=== PATIENT | female | born 1980 | race Caucasian/White ===

== ENCOUNTER 2016-08-31 08:30 | Emergency (ER) | payer OTHER ==
[~2016-08-31] VITALS: Ht 172.7 cm; Wt 127.0 kg
[2016-08-31 08:44] VITALS: TEMP 36.8; Ht 172.7 cm; Wt 127.0 kg
[2016-08-31] MEDS ORDERED: SODIUM CHLORIDE 0.9% 1000ML 1,000 ML IV STA (08:55)
[2016-08-31 08:57] VITALS: O2SAT 97
--- NOTE | 2016-08-31 09:10 | DIAGNOSTIC IMAGING REPORT ---
CHEST ONE VIEW PORTABLE CLINICAL HISTORY: Overdose COMPARISON STUDY: No previous studies for comparison. FINDINGS: The bones soft tissues and hemidiaphragms are normal. The cardiomediastinal silhouette is normal. The lungs are clear. The pulmonary vasculature is normal. IMPRESSION: Negative chest. The above report was generated using voice recognition software. It may contain grammatical, syntax or spelling errors. Electronically signed by: Rico Traore M.D. 08/31/2016 9:09 AM Dictated Date/Time: 08/31/2016 9:09 AM
[2016-08-31 09:35] LABS: BASO % 0.2 %; BASO ABS # 0.02 K/uL (0-0.2); COMPLETE YES; EOS % 1.9 %; HEMATOCRIT 39.8 % (37-47); IG% 0.3 %; LYMPH % 20.1 %; LYMPH ABS # 2.29 K/uL (1.2-3.4); MEAN CELL VOLUME 86.5 fL (80-100); MEAN CORPUSCULAR HEMOGLOBIN 28.5 pg (25-34); MEAN CORPUSCULAR HGB CONC 32.9 g/dl (32-36); MEAN PLATELET VOLUME 10.5 fL (7.4-10.4); MONO % 8.1 %; NEUT % 69.4 %; PLATELET COUNT 279 K/uL (130-400); WHITE BLOOD COUNT 11.41 K/uL (4.8-10.8)
[2016-08-31 09:55] LABS: ALT/SGPT 27 U/L (12-78); BLOOD UREA NITROGEN 11 mg/dl (7-18); BUN/CREATININE RATIO 13.4 (10-20); CARBON DIOXIDE 29 mmol/L (21-32); CHLORIDE 99 mmol/L (98-107); CREATININE 0.85 mg/dl (0.60-1.20); GLUCOSE 121 mg/dl (70-99); POTASSIUM 3.6 mmol/L (3.5-5.1); SODIUM 137 mmol/L (136-145)
[2016-08-31 09:56] LABS: MANUAL MICROSCOPIC REQUIRED? NO; REVIEW REQ? NO; URINE APPEARANCE CLEAR (CLEAR); URINE BILIRUBIN NEG (NEG); URINE COLOR YELLOW; URINE EPITHELIAL CELL AUTO 20-30 /lpf (0-5); URINE NITRITE NEG (NEG); URINE SPECIFIC GRAVITY 1.025 (1.000-1.030); UROBILINOGEN NEG (NEG)
[2016-08-31 09:56] LABS: ACETAMINOPHEN < 2 ug/ml (10-30)
[2016-08-31 10:00] LABS: ALKALINE PHOSPHATASE 96 U/L (45-117); AST/SGOT 15 U/L (15-37)
[2016-08-31] MEDS ORDERED: IBUPROFEN 600 MG TAB PO STA (10:02)
[2016-08-31 10:08] LABS: PREG INTERNAL NEGATIVE QC NEG CLEAR BACKGROUND; PREG INTERNAL POSITIVE QC POS CONTROL LINE
[2016-08-31 10:24] LABS: BENZODIAZEPINE, URINE NEG (NEG); COCAINE,URINE NEG (NEG); PHENCYCLIDINE, URINE NEG (NEG)
[2016-08-31 15:19] VITALS: BP 143/106; PULSE 95; O2SAT 100
--- NOTE | 2016-08-31 15:37 | EMERGENCY ROOM VISIT NOTE ---
History Report prepared by Sharri: Aster Antoine Under the Supervision of: Dr. Apollo Hua M.D. First contact with patient: 08:55 Chief Complaint: OVERDOSE (INTENTIONAL) Stated Complaint: OVERDOSE History of Present Illness The patient is a 35 year old female who presents to the Emergency Room with complaints of a sudden overdose that occurred [employer]. The patient came to the ED via ambulance from home. The patient's mother states that she was in her bedroom when she heard an abnormal noise in the living room followed by a period of no noises. She went into the living room and found the patient unresponsive on the floor with cyanotic lips. She loudly called the patient's name and shook her but she would not respond. The patient's mother called 911 and stayed on the phone with them until the ambulance arrived. The patient's mother states that she was able to get the patient to respond by slapping her face so she did that a couple times. The patient was given Narcan en route to the ED and was awake, alert, and responsive upon arrival to the ED. The patient expressed to EMS that she would like to go to rehab to get help. She states that she has a history of an IV heroin addiction but she was clean for 1.5 years while taking methadone. The patient states that she went to [facility] months and was taken off of Methadone. She got out of [facility] at the end of April and did not start using heroin until about 3 weeks ago. The patient reported to nursing staff that she uses heroin a few times a week and she denied daily use. The patient states that she used heroin this morning. She also expresses concern because she was supposed to have a job interview today at 1030. Nursing staff also reported that the patient experienced nausea with one episode of vomiting after drinking some water in the ED. The patient states that she feels well now. Pt denies suicidal ideations, headache, fevers, chills, diaphoresis, visual changes, neck pain, chest pain, breathing difficulties, abdominal pain, back pain, melena, hematochezia, urinary symptoms, numbness, weakness, lymphadenopathy, rash, or other complaints. Source of History: patient Onset: [employer] Position: other (global) Quality: other (overdose) Timing: other (sudden) Modifying Factors (Relieving): other (Narcan) Associated Symptoms: + nausea, + vomiting Review of Systems See HPI for pertinent positives and negatives. A total of ten systems were reviewed and were otherwise negative. Past Medical & Surgical Medical Problems: (1) Heroin addiction Surgical Problems: (1) S/P appendectomy Family History No pertinent family history Social History Marital Status: single Housing Status: lives with family Occupation Status: unemployed Current/Historical Medications No Active Prescriptions or Reported Meds Allergies Coded Allergies: Penicillins (Unverified Allergy, Unknown, ., 08/31/16) Physical Exam Vital Signs Date Time Temp Pulse Resp B/P (MAP) Pulse Ox O2 Delivery O2 Flow Rate FiO2 08/31/16 15:19 95 18 143/106 100 08/31/16 13:36 91 18 122/88 98 Room Air 08/31/16 10:11 103 18 133/82 100 Room Air 08/31/16 09:30 124 08/31/16 08:57 97 Room Air 08/31/16 08:56 98 14 121/88 97 Room Air 08/31/16 08:44 36.8 103 20 156/99 97 Room Air Physical Exam GENERAL: Awake, alert, well-appearing, in no distress HENT: Normocephalic, atraumatic. Oropharynx unremarkable. EYES: Normal conjunctiva. Sclera non-icteric. NECK: Supple. No nuchal rigidity. FROM. No JVD. RESPIRATORY: Clear to auscultation. CARDIAC: Tachycardic rate, normal rhythm. Extremities warm and well perfused. Pulses equal. ABDOMEN: Soft, non-distended. No tenderness to palpation. No rebound or guarding. No masses. RECTAL: Deferred. MUSCULOSKELETAL: Chest examination reveals no tenderness. The back is symmetrical on inspection without obvious abnormality. There is no CVA tenderness to palpation. No joint edema. UPPER EXTREMITIES: Track hand on bilateral wrists. LOWER EXTREMITIES: Calves are equal size bilaterally and non-tender. No edema. No discoloration. NEURO: Normal sensorium. No sensory or motor deficits noted. SKIN: No rash or jaundice noted. PSYCH: No suicidal ideation Medical Decision & Procedures ER Provider Diagnostic Interpretation: Radiology results as stated below per my review and radiologist interpretation: CHEST ONE VIEW PORTABLE FINDINGS: The bones soft tissues and hemidiaphragms are normal. The cardiomediastinal silhouette is normal. The lungs are clear. The pulmonary vasculature is normal. IMPRESSION: Negative chest. The above report was generated using voice recognition software. It may contain grammatical, syntax or spelling errors. Electronically signed by: Rico Traore M.D. 08/31/2016 9:09 AM Dictated Date/Time: 08/31/2016 9:09 AM Laboratory Results 08/31/16 09:04 Red Blood Count 4.60, Mean Corpuscular Volume 86.5, Mean Corpuscular Hemoglobin 28.5, Mean Corpuscular Hemoglobin Concent 32.9, Mean Platelet Volume 10.5, Neutrophils (%) (Auto) 69.4, Lymphocytes (%) (Auto) 20.1, Monocytes (%) (Auto) 8.1, Eosinophils (%) (Auto) 1.9, Basophils (%) (Auto) 0.2, Neutrophils # (Auto) 7.93, Lymphocytes # (Auto) 2.29, Monocytes # (Auto) 0.92, Eosinophils # (Auto) 0.22, Basophils # (Auto) 0.02 08/31/16 09:04 Test 08/31/16 09:04 08/31/16 09:24 08/31/16 09:30 White Blood Count 11.41 K/uL (4.8-10.8) Red Blood Count 4.60 M/uL (4.2-5.4) Hemoglobin 13.1 g/dL (12.0-16.0) Hematocrit 39.8 % (37-47) Mean Corpuscular Volume 86.5 fL (80-100) Mean Corpuscular Hemoglobin 28.5 pg (25-34) Mean Corpuscular Hemoglobin Concent 32.9 g/dl (32-36) Platelet Count 279 K/uL (130-400) Mean Platelet Volume 10.5 fL (7.4-10.4) Neutrophils (%) (Auto) 69.4 % Lymphocytes (%) (Auto) 20.1 % Monocytes (%) (Auto) 8.1 % Eosinophils (%) (Auto) 1.9 % Basophils (%) (Auto) 0.2 % Neutrophils # (Auto) 7.93 K/uL (1.4-6.5) Lymphocytes # (Auto) 2.29 K/uL (1.2-3.4) Monocytes # (Auto) 0.92 K/uL (0.11-0.59) Eosinophils # (Auto) 0.22 K/uL (0-0.5) Basophils # (Auto) 0.02 K/uL (0-0.2) RDW Standard Deviation 42.9 fL (36.4-46.3) RDW Coefficient of Variation 13.5 % (11.5-14.5) Immature Granulocyte % (Auto) 0.3 % Immature Granulocyte # (Auto) 0.03 K/uL (0.00-0.02) Anion Gap 9.0 mmol/L (3-11) Est Creatinine Clear Calc Drug Dose 132.5 ml/min Estimated GFR () 104.3 Estimated GFR (Non- 90.0 BUN/Creatinine Ratio 13.4 (10-20) Osmolality 283 mOsm/kg (280-300) Calcium Level 9.0 mg/dl (8.5-10.1) Total Bilirubin 0.4 mg/dl (0.2-1) Direct Bilirubin < 0.1 mg/dl (0-0.2) Aspartate Amino Transf (AST/SGOT) 15 U/L (15-37) Alanine Aminotransferase (ALT/SGPT) 27 U/L (12-78) Alkaline Phosphatase 96 U/L (45-117) Total Creatine Kinase 57 U/L (26-192) Creatine Kinase MB < 0.5 ng/ml (0.5-3.6) Creatine Kinase MB Ratio (0-3.0) Troponin I < 0.015 ng/ml (0-0.045) Total Protein 7.4 gm/dl (6.4-8.2) Albumin 3.5 gm/dl (3.4-5.0) Lipase 79 U/L (73-393) Human Chorionic Gonadotropin, Qual NEG (NEG) Salicylates Level < 1.7 mg/dl (2.8-20) Acetaminophen Level < 2 ug/ml (10-30) Ethyl Alcohol mg/dL < 3.0 mg/dl (0-3) Bedside Glucose 115 mg/dl (70-90) Urine Color YELLOW Urine Appearance CLEAR (CLEAR) Urine pH 5.0 (4.5-7.5) Urine Specific [place] 1.025 (1.000-1.030) Urine Protein NEG (NEG) Urine Glucose (UA) NEG (NEG) Urine Ketones NEG (NEG) Urine Occult Blood 1+ (NEG) Urine Nitrite NEG (NEG) Urine Bilirubin NEG (NEG) Urine Urobilinogen NEG (NEG) Urine Leukocyte Esterase NEG (NEG) Urine WBC (Auto) 1-5 /hpf (0-5) Urine RBC (Auto) 0-4 /hpf (0-4) Urine Hyaline Casts (Auto) 1-5 /lpf (0-5) Urine Epithelial Cells (Auto) 20-30 /lpf (0-5) Urine Bacteria (Auto) NEG (NEG) Urine Opiates Screen POS (NEG) Urine Methadone, Qualitative NEG (NEG) Urine Barbiturates NEG (NEG) Urine Phencyclidine (PCP) Level NEG (NEG) Ur Amphetamine/Methamphetamine NEG (NEG) MDMA (Ecstasy) Screen NEG (NEG) Urine Benzodiazepines Screen NEG (NEG) Urine Cocaine Metabolite NEG (NEG) Urine Marijuana (THC) NEG (NEG) Laboratory results reviewed by me Medications Administered Medications (Trade) Dose Ordered Sig/Panda Route Start Time Stop Time Status Last Admin Dose Admin Ibuprofen (Motrin Tab) 600 mg NOW STAT PO 08/31/16 10:02 08/31/16 10:03 DC 08/31/16 10:11 600 MG ECG Indication: toxicologic Rate (beats per minute): 91 Rhythm: normal sinus Findings: no acute ischemic change, no ectopy, other (normal intervals, QTc 467 ) ED Course 0907: The patient was evaluated in room A4. A complete history and physical exam was performed. 0920: I updated the family independence case manager on the patient's request for rehab. 1002: Ordered Motrin Tab 600 mg PO 1152: I reassessed the patient. She is doing well. She is being referred to rehab now. 1416: Case management informed me that the patient's case is being reviewed by the [facility] re[facility] facility. They are waiting for a call back from them. 1500: The patient was accepted at [facility]. She was discharged. Medical Decision Medication Reconciliation: I attest that I have personally reviewed the patient' s current medication list Patient was found to have a slightly elevated blood pressure due to circumstances. I do not believe that the patient requires hypertension monitoring. Triage Nursing notes reviewed and agree them. Additional history obtained from the family. The patient's history was concerning for altered mental status and probable overdose. Differential diagnosis: Etiologies such as toxicologic, infection, hypoglycemia, electrolyte abnormalities, cardiac sources, intracerebral event, neurologic, as well as others were entertained. Physical examination: The patient had normal sensorium. No trauma noted. ER treatment provided: Oral Motrin. The patient noted she had a slight headache. Diagnostic interpretation by me: The electrocardiogram was negative for pathologic change. There was no QRS widening or interval prolongation. The labs revealed an unremarkable CBC and chemistry panel. Tylenol, salicylate , and alcohol levels negative. The patient has a negative test. Urinalysis negative. Urine drug screen revealed opiates. Imaging studies: Chest x-ray as above This appears to be an isolated overdose. The patient is voluntary for rehabilitation. Bed search is currently underway. The patient was accepted at the [facility]. The patient's mother will transport her. She will follow up with primary physician upon discharge. By the evaluation outlined above other emergent etiologies such as those listed in the differential, as well as others, were deemed relatively unlikely. The patient was educated about the findings as listed above. All questions were answered and the patient was pleased with the treatment. Return instructions were outlined and the patient was discharged in stable condition. The patient was referred to [facility] and [facility] For follow- up for a recheck of the current condition. Impression Primary Impression: Heroin addiction Scribe Attestation The scribe's documentation has been prepared under my direction and personally reviewed by me in its entirety. I confirm that the note above accurately reflects all work, treatment, procedures, and medical decision making performed by me. Departure Information Dispostion Rehab Inpatient Facility Prescriptions No Active Prescriptions or Reported Meds Referrals No Doctor, Assigned (PCP) Patient Instructions My [facility] Additional Instructions Proceed directly to [facility] for addiction rehabilitation. Do not do drugs. Follow-up with your primary physician immediately upon discharge. Return to the emergency from for any fevers, vomiting, abdominal pain, difficulty breathing, or as needed.
[2016-09-03 12:10] LABS: COD UR NEGATIVE NG/ML (CUTOFF=50); HYDROCOD UR NEGATIVE NG/ML (CUTOFF=50); HYDROMOR UR NEGATIVE NG/ML (CUTOFF=50); MORPHINE UR 1430 NG/ML (CUTOFF=50); NORHYDROCODONE CONF UR NEGATIVE NG/ML (CUTOFF=50); OXYMORPH UR NEGATIVE NG/ML (CUTOFF=50)
== END 2016-08-31 15:20 ==
LOC: EDBD 08:30 → C.EDA 08:33
DX: F11.20 Opioid dependence, uncomplicated (principal); Z90.89 Acquired absence of other organs